=== PATIENT | male | born 1995 | race Two or more races ===

== ENCOUNTER 2017-05-30 18:37 | Emergency (ER) | payer OTHER ==
--- NOTE | 2017-05-30 18:52 | EDPHY ---
H & P Time Seen by Provider: 05/30/17 18:43 HPI/ROS: HPI Right hand injury. 22-year-old male by private vehicle. He was at work just prior to arrival. He was lifting a heavy 100 lb type out of a truck. He was doing this with a co- worker. The pipes slipped into block the pipe from hitting his co-worker he grabbed onto it with his right hand and it got pinned between another piece of steel. He complains of right hand pain and a small laceration to the radial aspect of the mickey neck ill fold on the thumb. He complains of pain specifically over the mid to distal aspect of the 2nd metacarpal phalangeal joint and the distal phalanx of the thumb. He is right-hand dominant. ROS: Constitutional: No fever, no chills. No weakness. Musculoskeletal: No back pain. No neck pain. As above. No other extremity pain. Skin: No rashes. Small laceration to thumb is noted. Neurological: No headache. No focal weakness or altered sensation. Past medical history: No significant past medical history. He does not recall when his last tetanus shot was. Social history: Nonsmoker. No alcohol. Here with his co-worker. Physical Exam: General Appearance: Alert, no distress. This patient is responding to questions appropriately and in full sentences. This patient appears well- hydrated and well-nourished. Eyes: Pupils equal and round no pallor or injection. No lid edema, erythema or injection. Right hand exam: He has a small amount of bleeding and a small nonsuturable laceration involving the paronychial fold radial aspect of the distal thumb. He has tenderness on palpation of the distal phalanx of the thumb but no significant bony deformity or crepitus noted on palpation to this area it is not significantly swollen either. He does have some tenderness on palpation over the dorsal aspect mid to distal metacarpal involving the 2nd digit. No bony deformity or crepitus noted on palpation of this area. There is no pain elicited by axial compression of his 2nd through 5th digits. No pain on axial compression of the wrist. The extensor and flexor tendon function is intact in all digits. The intrinsics are intact. The right hand is neurovascularly intact. Neurological: Motor sensory function is grossly intact. Cranial nerves are normal. Gait is normal. Skin: Warm and dry, no rashes. As above. Extremities are symmetrical. All joints range without pain or impingement except noted. Psychiatric: No agitation. No depression. Database: EKG: Imaging: Right hand x-ray series: Negative for fracture, subluxation, dislocation. Interpreted by me. Procedures: Emergency department course: Right hand x-ray will be obtained. The patient will be given a tetanus shot. 7:30 p.m., patient re-evaluated. Resting comfortably at this time. Results of his x-ray was discussed with him. He declines a splint. I do not feel this is necessary. I discussed follow-up with him. Return to emergency department precautions reviewed. All of his questions were answered. He was discharged in good condition. Differential Diagnosis: The differential diagnosis on this patient includes but is not limited to fracture, subluxation, dislocation involving the right hand. This represents a partial list of diagnoses considered. These considerations are based on history , physical exam, past history, reassessment and diagnostic testing. Constitutional: Initial Vital Signs Temperature (C) 37.0 C 05/30/17 18:53 Heart Rate 68 05/30/17 18:53 Respiratory Rate 16 05/30/17 18:53 Blood Pressure 135/77 H 05/30/17 18:53 O2 Sat (%) 98 05/30/17 18:53 O2 Delivery Mode Room Air Allergies/Adverse Reactions: No Known Allergies Allergy (Unverified 05/30/17 18:50) Home Medications: Medication Instructions Recorded NK [No Known Home Meds] 05/30/17 Medical Decision Making - Data Points Medications Given: Discontinued Medications Diphtheria/Tetanus/Acell Pertussis (Boostrix) 0.5 ml IM .ONCE ONE Stop: 05/30/17 19:00 Last Admin: 05/30/17 19:03 Dose: 0.5 ml Departure - Departure Disposition: Home, Routine, Self-Care Clinical Impression: Injury of right hand Condition: Good Instructions: Hand Sprain (ED), Crush Injury (ED) Additional Instructions: Read and follow provided instructions. Follow-up with your primary care physician in 2-3 days for re-evaluation. Ibuprofen dosin mg every 6 hr as needed for pain. Take with meals. Take only as needed for pain. Take only for 3 days at most. Return to the emergency department for worsening pain, discoloration or other serious concerns. Referrals: NONE *PRIMARY CARE P,. [Primary Care Provider] - As per Instructions
[2017-05-30 18:56] VITALS: BP 135/77; PULSE 68; RESP 16; TEMP 98.6; O2SAT 98
[2017-05-30] MEDS ORDERED: TDAP ADULT 0.5 ML INJ (BOOSTRIX) IM ONE (18:59)
== END 2017-05-30 19:30 | disposition home or self-care (01) ==
LOC: CED 18:37
DX: S69.91XA Unspecified injury of right wrist, hand and finger(s), initial encounter (principal); Z23 Encounter for immunization; X50.0XXA Overexertion from strenuous movement or load, initial encounter
CPT/HCPCS: 73130-PO